=== PATIENT | female | born 1985 | race Caucasian/White ===

== ENCOUNTER 2017-05-02 09:49 | Emergency (ER) | payer OTHER ==
[~2017-05-02] VITALS: Ht 167.6 cm; Wt 73.5 kg
--- NOTE | 2017-05-02 09:59 | NUR ---
PATIENT C/O CHEST PAIN AND LEFT ARM NUMBESS. 123 LEAD EKG DONE WITHIN 3 MINUTES OF ARRIVAL. PLACED ON SHANK ARCHER. DR PIMENTEL NOTIFIED.
[2017-05-02 10:33] LABS: BASOPHILS % (AUTO) 0.6 % (0.0-2.0); EOSINOPHILS # (AUTO) 0.2 K/uL (0.0-0.7); EOSINOPHILS % (AUTO) 3.8 % (0.0-7.0); HEMATOCRIT 40.4 % (37-47); HEMOGLOBIN 13.7 G/DL (12.0-16.0); LYMPHOCYTES # (AUTO) 1.8 K/UL (0.8-4.8); LYMPHOCYTES % (AUTO) 33.8 % (20.5-51.5); MEAN CORPUSCULAR HEMOGLOBIN 30.5 UUG (27.0-31.0); MEAN CORPUSCULAR HGB CONC 34 g/dL (32.0-37.0); MEAN CORPUSCULAR VOLUME 89.9 FL (81.0-99.0); MONOCYTES # (AUTO) 0.3 K/UL (0.1-1.30); MONOCYTES % (AUTO) 5.3 % (0.0-11.0); NEUTROPHILS # (AUTO) 3.2 K/UL (1.8-8.9); NEUTROPHILS % (AUTO) 56.5 % (38.5-71.5); PLATELET COUNT (AUTO) 241 K/UL (150-450); WHITE BLOOD COUNT (AUTO) 5.5 K/UL (4.0-11.2)
--- NOTE | 2017-05-02 10:53 | NUR ---
AWAITING TEST RESULTS. PATIENT STATES CHEST PAIN AND ARM NUMBNESS HAVE DIMINISHED SOME.
[2017-05-02 11:00] LABS: CREATININE 0.8 mg/dL (0.6-1.3); POTASSIUM 3.6 mmol/L (3.5-5.1)
[2017-05-02 11:13] LABS: BILIRUBIN,DIRECT 0.1 mg/dL (0.0-0.2); BILIRUBIN,TOTAL 0.4 mg/dL (0.2-1.0); TOTAL PROTEIN, SERUM 7.6 g/dL (6.4-8.2)
[2017-05-02] MEDS ORDERED: ASPIRIN 325 MG TABLET ONE (14:00)
[2017-05-02] MEDS ORDERED: ASPIRIN 325 MG TABLET PO ONE (14:00)
--- NOTE | 2017-05-02 14:16 | NUR ---
DC AND FOLLOW UP INSTRUCTIONS GIVEN AND EXPLAINED TO PATIENT WHO STATES SHE UNDERSRANDS ALL INSTRUCTIONS. COPIES OF ALL TESTS GIVEN TO PATIENT FOR FOLLOW UP.
[2017-05-02 14:18] VITALS: BP 112/70
== END 2017-05-02 14:19 | disposition home or self-care (01) ==
LOC: ER 09:49
DX: R07.9 Chest pain, unspecified (principal); R00.2 Palpitations; E11.9 Type 2 diabetes mellitus without complications; Z96.41 Presence of insulin pump (external) (internal); Z88.1 Allergy status to other antibiotic agents
CPT/HCPCS: 36415; 70030-TC; 71010; 84443; 84703; 85025; 85730; 93005; A4663